=== PATIENT | male | born 1980 | race Caucasian/White ===

== ENCOUNTER 2020-01-15 16:25 | Emergency (ER) | payer SELFPAY ==
--- NOTE | 2020-01-15 16:36 | Event Note ---
ED Screening Note Date of service: 01/15/20 Time: 16:35 ED Screening Note: This initial assessment/diagnostic orders/clinical plan/treatment(s) is/are subject to change based on patients health status, clinical progression and re- assessment by fellow clinical providers in the ED. Further treatment and workup at subsequent clinical providers discretion. Patient/guardian urged not to elope from the ED as their condition may be serious if not clinically assessed and managed. Initial orders include: Right hand x-ray, cbc, cmp
[2020-01-15 16:39] VITALS: BP 147/91
[2020-01-15 17:18] LABS: Basophils % (Auto) 0.3 % (0.0-1.8); Eosinophils # (Auto) 0.1 K/mm3 (0.0-0.4); Eosinophils % (Auto) 0.8 % (0.0-4.3); Hematocrit 42.5 % (35.5-45.6); Hemoglobin 14.5 gm/dl (11.8-15.2); Lymphocytes # (Auto) 1.7 K/mm3 (1.2-5.4); Lymphocytes % (Auto) 12.2 % (13.4-35.0); Mean Corpuscular HGB Conc 34 % (32-34); Mean Corpuscular Volume 93 fl (84-94); Monocytes # (Auto) 1.2 K/mm3 (0.0-0.8); Monocytes % (Auto) 8.5 % (0.0-7.3); Platelet Count 189 K/mm3 (140-440); Red Blood Count 4.57 M/mm3 (3.65-5.03); Red Cell Distribution Width 12.8 % (13.2-15.2)
--- NOTE | 2020-01-15 17:29 | XRay Report ---
XR hand 3+V RT INDICATION / CLINICAL INFORMATION: suspected fb at base of thumb COMPARISON: None FINDINGS: BONES / JOINT(S): No acute fracture or subluxation. There is mild scattered osteoarthritis, most pron ounced involving the thumb CMC and STT joints. No osseous erosions. SOFT TISSUES: There is a tiny radiodensity projecting within the subcutaneous tissues of the dorsal a spect of the right index finger metacarpal head. There is associated soft tissue swelling. No soft ti ssue gas or other radiopaque foreign body identified. ADDITIONAL FINDINGS: None. IMPRESSION: 1. No acute osseous findings of the right hand. 2. 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 3. Soft tissue swelling with tiny radiodensity within the subcutaneous tissues dorsal to the right in dex finger metacarpal head. This may reflect retained foreign body or dystrophic calcification. No ad ditional radiopaque foreign body identified. Signer Name: Javy Valerio MD Signed: 01/15/2020 5:24 PM Workstation Name: [id number]
[2020-01-15 17:42] LABS: Alanine Aminotransferase 25 units/L (7-56); Albumin 4.2 g/dL (3.9-5); Blood Urea Nitrogen 9 mg/dL (9-20); Calcium 9.4 mg/dL (8.4-10.2); Hemolysis Index 7
[2020-01-15] MEDS ORDERED: cefTRIAXone/NS 2 GM/100 ML 2 GM/100 ML BAG IV ONE (17:47)
[2020-01-15] MEDS ORDERED: SODIUM CHLORIDE 0.9% 1000 ML 1,000 ML IV ONE (17:47)
[2020-01-15 17:50] LABS: BUN/Creatinine Ratio 13
--- NOTE | 2020-01-15 18:48 | Emergency Department Report ---
HPI - General Chief Complaint: Extremity Problem,Nontraumatic Time Seen by Provider: 01/15/20 18:25 - HPI HPI: This is a 39-year-old male who presents to the emergency department with complaint of some swelling to the right hand that has been going on for the past 2 to 3 days. Patient was lifting up some wood and thinks that a small piece of wood got underneath his skin. He believes that it is somewhere around the base of his thumb. Initially the patient denies any past medical history. However, blood work obtained through triage shows hyperglycemia. The patient then admits that he was previously diagnosed with [id number] diabetes but has not been taking medication for the past 4 months as he ran out and does not have any outpatient follow-up. He has not taken anything for his symptoms prior to presentation today. ED Past Medical Hx - Past Medical History Previous Medical History?: No - Surgical History Past Surgical History?: No - Social History Smoking Status: Unknown if ever smoked Substance Use Type: None - Medications Home Medications: Home Medications Medication Instructions Recorded Confirmed Last Taken Type Clindamycin [Clindamycin CAP] 300 mg PO Q6H #28 capsule 01/15/20 Unknown Rx metFORMIN [Glucophage] 500 mg PO BID #60 tablet 01/15/20 Unknown Rx ED Review of Systems ROS: Stated complaint: RT HAND INJURY Other details as noted in HPI Comment: All other systems reviewed and negative Constitutional: denies: chills, fever Respiratory: denies: cough, shortness of breath Cardiovascular: denies: chest pain, palpitations Gastrointestinal: denies: abdominal pain Musculoskeletal: joint swelling. denies: back pain Skin: change in color (redness to right hand). denies: rash Neurological: denies: numbness, paresthesias Physical Exam - Physical Exam Vital Signs: Vital Signs 01/15/20 16:37 Temperature 98.7 F Pulse Rate 80 Respiratory 20 Rate Blood Pressure 147/91 O2 Sat by Pulse 98 Oximetry Physical Exam: GENERAL: The patient is well-developed well-nourished. HENT: Normocephalic. Atraumatic. Patient has moist mucous membranes. EYES: Extraocular motions are intact. NECK: Supple. Trachea is midline. CHEST/LUNGS: Clear to auscultation. There is no respiratory distress noted. HEART/CARDIOVASCULAR: Regular. There is no tachycardia. There is no murmur. ABDOMEN: Abdomen is soft, nontender. Patient has normal bowel sounds. SKIN: Skin is warm and dry. There is some nonpitting swelling to the medial half of the dorsal right hand with some mild erythema. No fluctuance. NEURO: The patient is awake, alert, and oriented. The patient is cooperative. The patient has no focal neurologic deficits. Normal speech. MUSCULOSKELETAL: There is tenderness to palpation to the medial half of the dorsal right hand. Radial pulse +2/4 and capillary refill less than 2 seconds to the affected right hand/wrist. ED Course Vital Signs 01/15/20 16:37 Temperature 98.7 F Pulse Rate 80 Respiratory 20 Rate Blood Pressure 147/91 O2 Sat by Pulse 98 Oximetry - Reevaluation(s) Reevaluation #1: 01/15/20 23:20 Lab Results 01/15/20 01/15/20 01/15/20 Range/Units 16:41 16:41 21:35 WBC 13.6 H (4.5-11.0) K/mm3 RBC 4.57 (3.65-5.03) M/mm3 Hgb 14.5 (11.8-15.2) gm/dl Hct 42.5 (35.5-45.6) % MCV 93 (84-94) fl MCH 32 (28-32) pg MCHC 34 (32-34) % RDW 12.8 L (13.2-15.2) % Plt Count 189 (140-440) K/mm3 Lymph % (Auto) 12.2 L (13.4-35.0) % [place] % (Auto) 8.5 H (0.0-7.3) % Eos % (Auto) 0.8 (0.0-4.3) % Baso % (Auto) 0.3 (0.0-1.8) % Lymph # (Auto) 1.7 (1.2-5.4) K/mm3 [place] # (Auto) 1.2 H (0.0-0.8) K/mm3 Eos # (Auto) 0.1 (0.0-0.4) K/mm3 Baso # (Auto) 0.0 (0.0-0.1) K/mm3 Seg Neutrophils % 78.2 H (40.0-70.0) % Seg Neutrophils # 10.6 H (1.8-7.7) K/mm3 Sodium 132 L (137-145) mmol/L Potassium 3.7 (3.6-5.0) mmol/L Chloride 93.3 L (98-107) mmol/L Carbon Dioxide 27 (22-30) mmol/L Anion Gap 15 mmol/L BUN 9 (9-20) mg/dL Creatinine 0.7 L (0.8-1.3) mg/dL Estimated GFR > 60 ml/min BUN/Creatinine Ratio 13 % Glucose 450 H (75-100) mg/dL POC Glucose 110 H (70-105) mg/dL Calcium 9.4 (8.4-10.2) mg/dL Total Bilirubin 0.60 (0.1-1.2) mg/dL AST 14 (5-40) units/L ALT 25 (7-56) units/L Alkaline Phosphatase 112 (35-129) units/L C-Reactive Protein 1.40 H (0.00-1.30) mg/dL Total Protein 7.7 (6.3-8.2) g/dL Albumin 4.2 (3.9-5) g/dL Albumin/Globulin Ratio 1.2 % ED Medical Decision Making - Lab Data Result diagrams: 01/15/20 16:41 01/15/20 16:41 - Radiology Data Radiology results: report reviewed XR hand 3+V RT INDICATION / CLINICAL INFORMATION: suspected fb at base of thumb COMPARISON: None FINDINGS: BONES / JOINT(S): No acute fracture or subluxation. There is mild scattered osteoarthritis, most pronounced involving the thumb CMC and STT joints. No osseous erosions. SOFT TISSUES: There is a tiny radiodensity projecting within the subcutaneous tissues of the dorsal aspect of the right index finger metacarpal head. There is associated soft tissue swelling. No soft tissue gas or other radiopaque foreign body identified. ADDITIONAL FINDINGS: None. IMPRESSION: 1. No acute osseous findings of the right hand. 2. 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 3. Soft tissue swelling with tiny radiodensity within the subcutaneous tissues dorsal to the right index finger metacarpal head. This may reflect retained foreign body or dystrophic calcification. No additional radiopaque foreign body identified. - Medical Decision Making This patient presents with a few days of some right hand pain and swelling with concern for some wood being in the skin has a retained foreign body. On examination the patient does have some nonpitting swelling to the medial dorsal right hand with some erythema concerning for a cellulitis. There is no fluctuance or obvious signs of underlying abscess. Patient is neurovascularly intact with +2/4 radial pulse, distal capillary refill less than 2 seconds. There is no numbness or paresthesias. The patient is able to completely extend all of his fingers and can make a fist. An x-ray was done that shows a very small radiopaque object at the metacarpal head of the right index finger. This may be the wood that the patient is referencing. Due to its size and location, I cannot remove this foreign body. The patient was given some doses of IV antibiotics. Patient has a very mild leukocytosis of about 13,000. The patient has hyperglycemia with a blood sugar of about 450. However there is no elevation in the anion gap and this does not appear to be diabetic ketoacidosis. The isi tarango admits to a 4-month history of medication noncompliance with his diabetes oral medications. He was given IV fluid resuscitation and a dose of IV insulin and his blood sugar came down to about 110 on Accu-Chek. The patient will be discharged home at this time. He has been given an outpatient referral for an orthopedic hand specialist and a prescription for clindamycin. The patient and I had a discussion regarding monitoring for any worsening of his infection. The patient understands that he must go to the closest emergency department with any increased pain, increased swelling, incre ased redness, development of fever, any restriction to range of motion of the fingers or hand, or with any acute distress. Critical Care Time: No Critical care attestation.: If time is entered above; I have spent that time in minutes in the direct care of this critically ill patient, excluding procedure time. ED Disposition Clinical Impression: Cellulitis of right hand, Hyperglycemia due to diabetes mellitus Foreign body in hand Qualifiers: Encounter type: initial encounter Laterality: right Qualified Code(s): S60.551A - Superficial foreign body of right hand, initial encounter Disposition: TO HOME OR SELFCARE Is pt being admited?: No Condition: Stable Instructions: Cellulitis, Adult, Hand or Foot Foreign Body, Adult, Clindamycin capsules, Hyperglycemia, Metformin tablets, Blood Glucose Monitoring, Adult, Diabetes Mellitus Type 2 in Adults (ED) Additional Instructions: Will un seguimiento con un mdico de atencin primaria en los prximos castellano para un chequeo general y para evaluar noble nivel elevado de azcar en farhana. Le estoy comenzando a tari un medicamento llamado metformina que se jaren dos veces al da. No se salte las comidas, tanya trate de comer alimentos con bajo contenido de azcar, carbohidratos y almidones. Lleve un registro de azcar en farhana. Colton los antibiticos segn lo prescrito. Le estoy dando cristiano referencia para un cirujano ortopdico de mano, el Dr. Abarca. No es necesario que consulte al Dr. Abarca especficamente, tanya consulte con un ortopedista lo antes posible. Regrese al departamento de emergencias del armario con cualquier empeoramiento de dwight sntomas, incluyendo aumento del dolor de tacos, aumento de la hinchazn, aumento del enrojecimiento o desarrollo de fiebre. Prescriptions: Clindamycin [Clindamycin CAP] 300 mg PO Q6H #28 capsule metFORMIN [Glucophage] 500 mg PO BID #60 tablet Referrals: PRIMARY CAREMD [Primary Care Provider] - 3-5 Days KENAN ABARCA MD [Referring] - [facility] ANDREINA NAVARRO MD [Staff Physician] - 3-5 Days [facility] [Provider Group] - 3-5 Days Time of Disposition: 21:48 Print Language: [place]
[2020-01-15] MEDS ORDERED: INSULIN REGULAR, HUMAN 100 UNIT/ML 3ML VIAL IV SCH (19:00)
[2020-01-15] MEDS: VANCOMYCIN/NS 1 GM/250 ML 1 GM/250 ML BAG IV ONE ×2 (19:24→20:57)
[2020-01-15] MEDS ORDERED: INSULIN REGULAR, HUMAN 100 UNITS/1 ML ONE (20:15)
== END 2020-01-15 22:15 | disposition home or self-care (01) ==
LOC: ED 16:25
DX: S60.551A Superficial foreign body of right hand, initial encounter (principal); L03.113 Cellulitis of right upper limb; E11.65 Type 2 diabetes mellitus with hyperglycemia; X58.XXXA Exposure to other specified factors, initial encounter; Y93.89 Activity, other specified; Y92.89 Other specified places as the place of occurrence of the external cause; Y99.8 Other external cause status
CPT/HCPCS: 36415; 73130; 80053; 82962; 85025; 86140; 96374; 96375; 99284; J0696; J3370; J7030; J1815